=== PATIENT | female | born 1985 | race Caucasian/White ===

== ENCOUNTER 2020-03-16 17:31 | Emergency (ER) | payer MEDICAID, SELFPAY ==
[2020-03-16 17:33] VITALS: BP 97/59; PULSE 116; RESP 15; TEMP 37; O2SAT 98; BMI 29.2
--- NOTE | 2020-03-16 18:33 | ED.VIS.GEN ---
History of Present Illness Chief Complaint: Other, Pain/Inj Narrative: 34-year-old female presenting for evaluation of to her nose. This occurred 4 days ago with a softball. Patient states that it initially bled but has stopped bleeding. She states she has trouble reading to the left side of her nose. She states she was knocked out but has not had any problems with dizziness or lightheadedness. She has no nausea. She has not tried to ice her nose. She does feel like the left side is more congested. Past Medical History - Allergies and Home Meds Allergies/Adverse Reactions: Allergies Penicillins [PCN] Allergy (Verified 03/16/20 17:32) Anaphylaxis vancomycin Allergy (Verified 03/16/20 17:32) PT UNSURE OF REACTION Primary Care Physician: NOT,DEFINED [NON-STAFF] - Past Medical History: None Surgical History: noncontributory Lives: Spouse/ Significant Other Alcohol: None Drugs: None Review of Systems General: Denies: Chills, Fever, Sweats Eyes: Denies: Visual changes - bilaterally, Diplopia ENT: Reports: - - Solved left-sided epistaxis from 4 days ago. Difficulty breathing through the left side of her nose. Bruising to the nose. Cardiovascular: Denies: Chest pain, Palpitations Respiratory: Denies: Dyspnea, Cough, Dyspnea on exertion Gastrointestinal: Denies: Abdominal pain, Nausea, Vomiting, Diarrhea, Melena, Hematochezia Genitourinary: Denies: Dysuria, Hematuria, Frequency Musculoskeletal: Denies: Back pain, Extremity Pain Skin: Denies: Rash, Wounds Neurological: Denies: Headache, Weakness, Numbness Physical Exam Vital Signs/Narrative: Vital Signs Temp Pulse Resp BP Pulse Ox 03/16/20 17:33 98.6 F 116 H 15 97/59 L 98 Inital Vital Signs reviewed: Yes General: Well nourished, No Acute Distress Head: Normocephalic Eyes: Perrl, EOMI ENT: - - Externally the nose appears midline. There is some bruising and swelling centrally with more to the left. The right nare is patent. The left nare has no nasal septal hematoma. The septum does appear internally to be deviated to the left. Neck: Supple Cardiovascular: Regular rate Skin: - - Bruising over the nose Neurological: Alert, Oriented x3 Psychological: Normal affect Diagnostic/Tx/Re-eval - Medical Decision Making Patient was seen and evaluated on arrival for difficulty breathing to the left side of her nares as well as nasal bone injury. There does appear to be a deviated septum there is also swelling on the nose to the left and to the right. Patient will be given referral to ENT for evaluation. She was amenable to this plan. She will be discharged home in stable condition. Impression: 1. Nasal bone contusion 2. Deviated septum ED Disposition - Plan for ED Patient: Disposition: Home or Assisted Living Instructions: ED Contusion Nasal Referrals: NOT,DEFINED [NON-STAFF] -
== END 2020-03-16 18:47 | disposition home or self-care (01) ==
LOC: ED 18:41
PROVIDERS: Emergency Provider Student in an Organized Health Care Education/Training Program
DX: S00.33XA Contusion of nose, initial encounter (principal); J34.2 Deviated nasal septum; X58.XXXA Exposure to other specified factors, initial encounter
CPT/HCPCS: 99282